=== PATIENT | female | born 1995 | race Two or more races ===

== ENCOUNTER → 2024-11-09 | Outpatient (CLI) | payer MEDICAID, SELFPAY ==
--- NOTE | 2024-11-09 11:57 | XR_ITS ---
Examination: Shoulder,right, 3 views Technique: Shoulder AP internal rotation, AP external rotation, Y view shoulder, 3 views Exam date and time :November 09, 2024 1215 hours INDICATIONS: Right shoulder pain months FINDINGS: No shoulder fracture or dislocation No arthritic change. No AC joint separation IMPRESSION: Negative for osseous abnormality
== END | disposition home or self-care (01) ==
LOC: CDIM 11:49
PROVIDERS: Referring Provider Obstetrics & Gynecology; Visit Provider Obstetrics & Gynecology
DX: M25.511 Pain in right shoulder (principal)
CPT/HCPCS: 73030